=== PATIENT | female | born 1975 | race Two or more races ===

== ENCOUNTER 2016-09-24 07:55 | Inpatient (IN) | payer MEDICARE, OTHER ==
[~2016-09-24] VITALS: Ht 149.9 cm; Wt 67.0 kg
[~2016-09-24 07:55] MED LIST: ALBUMIN HUMAN 5% 500 ML ONE; BUPIVACAINE/PF-EPI 0.5% 1:200K ONE; FENTANYL PF 250 MCG/5ML ONE; KRIL500C PO; MIDAZOLAM 1 MG/ML, 2ML ONE; MILK150C2 PO
[2016-09-24] MEDS ORDERED: LACTATED RINGERS 1,000 ML IV SCH (08:32)
[2016-09-24 08:53] VITALS: BP 123/78
[2016-09-24 09:15] LABS: HCG UR OBC PASS
[2016-09-24] MEDS ORDERED: LABETALOL 5MG/ML, 20ML IV PRN (10:00)
[2016-09-24] MEDS ORDERED: METOCLOPRAMIDE 5 MG/ML, 2ML IV PRN (10:00)
[2016-09-24] MEDS ORDERED: PROMETHAZINE 25 MG/ML, 1ML IV PRN (10:00)
[2016-09-24] MEDS ORDERED: OXYcodone 5 MG/5 ML ORAL.SOL UDC PO PRN (10:00)
[2016-09-24] MEDS ORDERED: ONDANSETRON 2MG/ML, 2ML IVPush PRN (10:00)
[2016-09-24] MEDS ORDERED: ACETAMINOPHEN 325 MG TABLET PO PRN (10:00)
[2016-09-24] MEDS ORDERED: FENTANYL PF 100 MCG/2ML IV PRN (10:00)
[2016-09-24] MEDS ORDERED: BUPIVACAINE/PF-EPI 0.5% 1:200K INFIL ONE (11:01)
[2016-09-24] MEDS ORDERED: HYDROmorphone 2 MG/ML, 1ML ONE ×2 (12:42→13:45)
[2016-09-24] MEDS: HYDROmorphone 1 MG/ML, 1ML IV PRN ×6 (12:45→17:14)
[2016-09-24] MEDS ORDERED: ONDANSETRON 2MG/ML, 2ML IV PRN (13:00)
[2016-09-24] MEDS ORDERED: OXYcodone 5 MG/5 ML ORAL.SOL UDC ONE (13:45)
[2016-09-24 14:15] VITALS: BP 100/51
[2016-09-24] MEDS: DIPHENHYDRAMINE 50 MG/ML, 1ML IVPush PRN (14:57)
[2016-09-24] MEDS: POTASSIUM CHLORIDE 20 MEQ in D5%-0.9% NACL 1,000 ML IV SCH (14:57)
[2016-09-24] MEDS ORDERED: ONDANSETRON 2MG/ML, 2ML ONE (15:12)
[2016-09-24] MEDS ORDERED: PROPOFOL 10 MG/ML, 20ML ONE (15:12)
[2016-09-24] MEDS ORDERED: NEOSTIGMINE 1 MG/ML, 10ML ONE (15:12)
[2016-09-24] MEDS ORDERED: CEFAZOLIN 1,000 MG ONE (15:12)
[2016-09-24] MEDS ORDERED: GLYCOPYRROLATE 0.2MG/1ML ONE (15:12)
[2016-09-24] MEDS ORDERED: DEXAMETHASONE 4 MG/ML, 1ML ONE (15:12)
[2016-09-24] MEDS ORDERED: ROCURONIUM 10 MG/ML ONE (15:12)
[2016-09-24] MEDS: CEFAZOLIN PMX 1GM/50ML 50 ML IVPB SCH (17:15)
[2016-09-24 19:27] VITALS: BP 116/73
[2016-09-24] MEDS: HYDROcodone/APAP 5/325 TABLET PO PRN ×2 (19:35→21:58)
[2016-09-24 23:29] VITALS: BP 102/62
[2016-09-25] MEDS: morphine SULFATE 10 MG/ML, 1ML IVPush PRN ×2 (00:54→10:28)
[2016-09-25] MEDS: HYDROcodone/APAP 5/325 TABLET PO PRN ×5 (02:10→20:37)
[2016-09-25] MEDS: CEFAZOLIN PMX 1GM/50ML 50 ML IVPB SCH (02:10)
[2016-09-25 04:00] VITALS: BP 100/66
[2016-09-25 05:10] LABS: BLOOD UREA NITROGEN 11 mg/dL (7-18)
[2016-09-25 08:05] VITALS: BP 110/71
[2016-09-25] MEDS: ENOXAPARIN 40 MG/0.4 ML SQ SCH (08:12)
[2016-09-25] MEDS: DIPHENHYDRAMINE 50 MG/ML, 1ML IVPush PRN ×2 (14:14→20:13)
[2016-09-25] MEDS: POTASSIUM CHLORIDE 20 MEQ in D5%-0.9% NACL 1,000 ML IV SCH (15:27)
[2016-09-25 15:55] VITALS: BP 108/72
[2016-09-25 19:11] VITALS: BP 108/73
[2016-09-26] MEDS: HYDROcodone/APAP 5/325 TABLET PO PRN ×5 (01:06→21:14)
[2016-09-26 02:00] VITALS: BP 109/73
[2016-09-26 05:47] LABS: HEMOGLOBIN 11.1 g/dL (11.7-16.4)
[2016-09-26 05:58] LABS: BLOOD UREA NITROGEN 10 mg/dL (7-18)
[2016-09-26 08:20] VITALS: BP 114/75
[2016-09-26] MEDS: ENOXAPARIN 40 MG/0.4 ML SQ SCH (09:11)
[2016-09-26] MEDS: POTASSIUM CHLORIDE 20 MEQ in D5%-0.9% NACL 1,000 ML IV SCH (13:15)
[2016-09-26 13:38] VITALS: BP 113/74
[2016-09-26 18:45] VITALS: BP 115/78
[2016-09-27 01:50] VITALS: BP 122/84
[2016-09-27] MEDS: HYDROcodone/APAP 5/325 TABLET PO PRN ×3 (02:48→11:23)
[2016-09-27 05:35] LABS: BLOOD UREA NITROGEN 12 mg/dL (7-18)
[2016-09-27] MEDS: POTASSIUM CHLORIDE 20 MEQ in D5%-0.9% NACL 1,000 ML IV SCH (06:37)
[2016-09-27 07:13] VITALS: BP 112/77
[2016-09-27] MEDS: ENOXAPARIN 40 MG/0.4 ML SQ SCH (08:26)
[2016-09-27] MEDS ORDERED: OXYC-302 PO (08:33)
[2016-09-27] MEDS ORDERED: DOCU-30 PO (08:34)
[2016-09-27 12:15] VITALS: BP 127/76
[2016-09-27 14:15] VITALS: BP_SYST 117; BP_DIAS 68; BP_DIAS 80
== END 2016-09-27 14:44 | disposition home or self-care (01) | DRG 658 ==
LOC: OUT 07:55 → EDSTATUS 11:30 → ORIP 12:32 → 4NOR 14:17
PROVIDERS: ADMIT Urology; ATTEND Urology
PROC: 0T9B70Z Drainage of Bladder with Drainage Device, Via Natural or Artificial Opening (ICD-10-PCS; 2016-09-24)
PROC: 0TT04ZZ Resection of Right Kidney, Percutaneous Endoscopic Approach (ICD-10-PCS; principal; 2016-09-24 09:30)
DX: C64.1 Malignant neoplasm of right kidney, except renal pelvis (principal); E78.00 Pure hypercholesterolemia, unspecified; F15.90 Other stimulant use, unspecified, uncomplicated; R33.8 Other retention of urine; Z87.440 Personal history of urinary (tract) infections
CPT/HCPCS: 36415; 80048; 80053; 81001; 81025; 85018; 85025; 86850; 86900; 87086; 88307; 88331; 93005; J0690; J1100; J1170; J1650; J2250; J2405; J2704; J2710; J3010; J3480; J3490; J7042; P9045; J1200; J2270; J7120